=== PATIENT | female | born 1995 | race Caucasian/White ===

== ENCOUNTER → 2018-06-10 15:18 | Outpatient (CLI) | payer MEDICAID, SELFPAY ==
[2018-06-09 16:21] VITALS: BMI 23.9
[2018-06-10 16:22] LABS: Mucous, Urine 0 SEEN /hpf (<or=2+)
[2018-06-10 16:55] LABS: Color, Urine Yellow (Yellow); Glucose, Dipstick Normal (Normal); Ketone-Dipstick Negative (Negative); Leukocyte Esterase-Dipstick 500 /ul (Negative); Nitrite-Dipstick Negative (Negative); Occult Blood-Urine 50 /ul (Negative); Protein-Dipstick Negative (Negative); Urine Bilirubin Dipstick Negative (Negative); Urine Clarity Sl. Cloudy (Clear); Urine Urobilinogen Normal (Normal)
[2018-06-10 17:04] LABS: Bacteria 4+ /hpf (None Seen); Red Blood Cells-Urine 5-10 SEEN /hpf (0-5); Squamous Epithelial Cells - UA 0-5 SEEN /hpf (5-10); White Blood Cells 25-50 SEEN /hpf (0-5)
== END ==
PROVIDERS: Referring Provider Physician Assistant Surgical; Visit Provider Physician Assistant Surgical
DX: R30.0 Dysuria (principal); J02.9 Acute pharyngitis, unspecified
CPT/HCPCS: 81001; 87086; 87088; 87186